=== PATIENT | female | born 1975 | race African-American/Black ===

== ENCOUNTER 2019-02-09 16:08 | Emergency (ER) | payer OTHER ==
[~2019-02-09] VITALS: Ht 154.9 cm; Wt 49.9 kg
[2019-02-09 16:08] VITALS: TEMP 98.3
[2019-02-09 18:29] VITALS: BP 129/64
== END 2019-02-09 18:29 | disposition home or self-care (01) ==
LOC: ED 16:08
PROC: 2W3JX1Z Immobilization of Right Finger using Splint (ICD-10-PCS; principal; 2019-02-09)
DX: S62.666B Nondisplaced fracture of distal phalanx of right little finger, initial encounter for open fracture (principal); S60.051A Contusion of right little finger without damage to nail, initial encounter; S61.216A Laceration without foreign body of right little finger without damage to nail, initial encounter; S67.196A Crushing injury of right little finger, initial encounter; W31.9XXA Contact with unspecified machinery, initial encounter; Y92.89 Other specified places as the place of occurrence of the external cause
CPT/HCPCS: 90471; 90715; 96372; 99283; J0696